=== PATIENT | female | born 1960 | race Caucasian/White ===

== ENCOUNTER 2024-04-30 17:46 | Emergency (ER) | payer OTHER, SELFPAY ==
[2024-04-30 17:49] VITALS: BP 156/99
--- NOTE | 2024-04-30 17:50 | ED.GENMED ---
ED Provider Triage
<Jagdish Duarte PA-C - Last Filed: 04/30/24 17:52>
-
Patient seen by provider in Triage?: Seen in Triage
63 yo female presents for evaluation of LLQ pain x 2 days. Sharp, colicky, radiates across the lower abd. No f/c/s/n/v/d. No prior surgeries. No imaging proven divertic in the past but has been treated empirically for this
Abdomen soft, mildly tender. NO peritoneal signs. Looks well.
Check labs, CT
History of Present Illness
<Jagdish Duarte PA-C - Last Filed: 04/30/24 17:52>
General
Chief Complaint: Abdominal Pain
Time Seen by Provider: 04/30/24 22:34
<Chapin Steinberg DO - Last Filed: 05/01/24 00:34>
History of Present Illness
History of Present Illness:
TIME OF INITIAL ENCOUNTER: 10:40 PM
HPI: Patient presents with lower abdominal pain. She describes the pain as sharp and colicky and has been ongoing for the past 2 days. She was empirically treated for diverticulitis in the past but did not have any imaging to confirm this.
EXAM:
GENERAL: Well appearing in no distress
HEENT: Moist oral mucosa
CARDIOVASCULAR: No murmurs, normal heart rate, regular rhythm, No chest wall tenderness
PULMONARY: No respiratory distress, breath sounds are clear and equal
ABDOMEN: Soft with no peritoneal signs, mild left-sided lower and upper abdominal tenderness
NEUROLOGIC: Excellent strength all extremities, no coordination deficits
PSYCHIATRIC: Appropriate mental status, normal insight and judgement
EXTREMITIES: Nontender, no edema, moves all extremities equally
SKIN: No rash, no lesions
NUMBER AND COMPLEXITY OF PROBLEMS ADDRESSED AT THE ENCOUNTER
� Chronic conditions affecting care: Asthma, hypothyroidism, diverticular disease
� Acute Exacerbation and/or Progression of Chronic Illness: This is an acute problem
� Differential Diagnosis includes: Diverticulitis, complication from diverticulitis such as abscess or perforation
AMOUNT AND/OR COMPLEXITY OF DATA TO BE REVIEWED AND ANALYZED
� I performed an independent evaluation of and my interpretation is:
EKG:
CT: CT imaging reviewed�moderate diverticulitis noted descending colon
X-rays:
Laboratory Studies: White count 15.2, chemistries unremarkable
Other:
� Review of other/old records: The patient was seen here with eye floaters in 2020
� Clinical information was obtained by an independent historian: I spoke to
� Prescriptions/Medications Considered but not given:
� Further testing considered but not performed:
RISK OF COMPLICATIONS AND/OR MORBIDITY OR MORTALITY OF PATIENT MANAGEMENT
� Social determinants of health affecting care: Lives at home
� Discussion with other providers:
� Escalation of care including admission/observation vs risk of discharge considered: Leukocytosis is noted, CT does show moderate diverticulitis however the patient's physical exam is relatively unremarkable. Will plan oral
antibiotics.
ANY OTHER UPDATES:
12:30 AM: I reassessed. The patient appears comfortable. CT imaging does confirm diverticulitis. She tells me this is her fourth bout but the first time this is confirmed by imaging. She is to follow-up with PMD and GI
Past History
<Jagdish Duarte PA-C - Last Filed: 04/30/24 17:52>
Past History
ED Past Medical History: Other (Osteoporosis mixed connective tissue)
Social History
Tobacco: Non-smoker
Alcohol: None
Drug: None
Personal:
Living: with family
Employment: Employed
Family History
Family History: Other (Noncontributory)
Phy Exam
<Chapin Steinberg DO - Last Filed: 05/01/24 00:34>
Physical Exam
Physical Exam:
See HPI
Course
<Jagdish Duarte PA-C - Last Filed: 04/30/24 17:52>
Orders/Labs/Results
Orders:
Orders
04/30/24 17:49
CT Abd/Pel (IV only)-DH only Urgent
Comment:
Reason For Exam: LLQ pain
04/30/24 17:57
Complete Blood Count/With Diff Urgent
Comprehensive Metabolic Panel Urgent
04/30/24 22:50
Urinalysis Reflex To Culture Urgent
Date Specimen was Collected: 04/30/24
Time Specimen was Collected: 22:47
Urine Microscopic Reflex Cult Urgent
05/01/24 00:25
Amoxicillin 875 mg/Clav 125 mg [Augmentin 875 mg/125 mg] 1 tablet PO NOW STA
Abnormal Lab Results
04/30/24 04/30/24
17:57 22:50
WBC 15.2 H 10^3/uL
(4.8-10.8)
Abs Immat Gran (auto) 0.1 H 10^3/uL
(0-0.05)
Absolute Neuts (auto) 11.1 H 10^3/uL
(1.4-6.5)
Absolute Monos (auto) 1.3 H 10^3/uL
(0.1-0.6)
Lymphocytes % 17.3 L %
(20.5-51.1)
Glucose 103 H mg/dl
(70-99)
Urine Ketones 2+ A
(Negative)
Ur Occult Blood Reflex 2+ A
(Negative)
Leukocyte Esterase Rfl Trace A
(Negative)
Urine Bacteria (Reflex) Few A
(Negative)
04/30/24 17:57
04/30/24 17:57
Vital Signs
Initial and Last Documented VS:
Initial Vital Signs
Temp Pulse Resp BP Pulse Ox
36.7 C 126 20 156/99 99
04/30/24 17:49 04/30/24 17:49 04/30/24 17:49 04/30/24 17:49 04/30/24 17:49
Last Documented Vital Signs
Temp Pulse Resp BP Pulse Ox
37.2 C 105 20 120/71 96
04/30/24 21:00 04/30/24 21:00 04/30/24 21:00 05/01/24 00:06 05/01/24 00:06
<Chapin Steinberg, - Last Filed: 05/01/24 00:34>
Orders/Labs/Results
Orders:
Orders
04/30/24 17:49
CT Abd/Pel (IV only)-DH only Urgent
Comment:
Reason For Exam: LLQ pain
04/30/24 17:57
Complete Blood Count/With Diff Urgent
Comprehensive Metabolic Panel Urgent
04/30/24 22:50
Urinalysis Reflex To Culture Urgent
Date Specimen was Collected: 04/30/24
Time Specimen was Collected: 22:47
Urine Microscopic Reflex Cult Urgent
05/01/24 00:25
Amoxicillin 875 mg/Clav 125 mg [Augmentin 875 mg/125 mg] 1 tablet PO NOW STA
Abnormal Lab Results
04/30/24 04/30/24
17:57 22:50
WBC 15.2 H 10^3/uL
(4.8-10.8)
Abs Immat Gran (auto) 0.1 H 10^3/uL
(0-0.05)
Absolute Neuts (auto) 11.1 H 10^3/uL
(1.4-6.5)
Absolute Monos (auto) 1.3 H 10^3/uL
(0.1-0.6)
Lymphocytes % 17.3 L %
(20.5-51.1)
Glucose 103 H mg/dl
(70-99)
Urine Ketones 2+ A
(Negative)
Ur Occult Blood Reflex 2+ A
(Negative)
Leukocyte Esterase Rfl Trace A
(Negative)
Urine Bacteria (Reflex) Few A
(Negative)
04/30/24 17:57
04/30/24 17:57
Vital Signs
Initial and Last Documented VS:
Initial Vital Signs
Temp Pulse Resp BP Pulse Ox
36.7 C 126 20 156/99 99
04/30/24 17:49 04/30/24 17:49 04/30/24 17:49 04/30/24 17:49 04/30/24 17:49
Last Documented Vital Signs
Temp Pulse Resp BP Pulse Ox
37.2 C 105 20 120/71 96
04/30/24 21:00 04/30/24 21:00 04/30/24 21:00 05/01/24 00:06 05/01/24 00:06
<Chapin Steinberg DO - Last Filed: 05/01/24 00:34>
*Critical Care Note
Total Time (30-74mins, 75-104mins- exclusive of procedures): Not Applicable
ED Attending Note
<Jagdish Duarte PA-C - Last Filed: 04/30/24 17:52>
-
Portions of this chart may have been created with voice recognition software.� Occasional wrong word or��sound alike� substitutions may have occurred due to the inherent limitations of voice recognition software.
Discharge Plan
Departure
Patient Disposition: Home (Routine Discharge)
Date of Disposition: 05/01/24
Time of Disposition: 00:31
Patient with high blood pressure during this ER visit?: Yes
Discharge Problem:
Diverticulitis
Instructions: Diverticulitis (DC)
Prescriptions:
New
amoxicillin-pot clavulanate 875-125 mg tablet
1 tab PO BID Qty: 14 0RF
No Action
levothyroxine 88 MCG tablet
88 mcg PO DAILY
hydroxychloroquine 200 MG tablet
200 mg PO BID
abaloparatide [Tymlos] 1.56 ML pen injector
1.56 ml SC HS
cholecalciferol (vitamin D3) 2,000 UNITS tablet
2,000 units PO DAILY
Referrals:
Bartolo Alvarenga MD [Family Provider] -
Activity Restrictions/Additional Instructions:
The CAT scan shows moderate diverticulitis involving the descending colon with associated small amount of adjacent fluid. There is no associated abscess. We recommend a follow-up colonoscopy with your doctors after symptoms have improved. CAT
scan also shows a 1.8 cm right adrenal nodule as well as gallstones. Return here if worse or other concerns. I sent a prescription for Augmentin to your pharmacy in [place].
Interventions
Interventions:
*Risk Screen - Suicide Last Done: 04/30/24 22:45
*General Assessment Last Done: 04/30/24 17:49
*Neglect/Abuse Screening Last Done: 04/30/24 22:45
ED- Fall Risk Assessment Last Done: 04/30/24 22:44
*ED COVID-19 Vaccine History Last Done: 04/30/24 22:45
*Nursing Disposition Last Done: 05/01/24 00:33
IX-Oblxll-Apxyzjhimb Assessment Last Done: 04/30/24 22:44
Discharge Date and Time
Print Language: [place] CITIZEN
[2024-04-30 18:07] LABS: % Basophils 0.3 % (0-2); % Eosinophils 0.6 % (0-6); % Immature Granulocytes 0.5 % (0-0.5); % Lymphocytes 17.3 % (20.5-51.1); % Monocytes 8.3 % (1.7-9.3); Absolute Basophils 0.1 10^3/uL (0-0.2); Absolute Eosinophils 0.1 10^3/uL (0-0.7); Absolute Immature Granulocytes 0.1 10^3/uL (0-0.05); Absolute Lymphocytes 2.6 10^3/uL (1.2-3.4); Absolute Monocytes 1.3 10^3/uL (0.1-0.6); Absolute Neutrophils 11.1 10^3/uL (1.4-6.5); Hematocrit 41.3 % (37.0-47.0); Hemoglobin 14.1 g/dL (12.0-16.0); Mean Corp Hgb Conc. 34.1 g/dL (33.0-37.0); Mean Corpuscular Hgb 30.1 pg (27.0-31.0); Mean Corpuscular Volume 88.2 fL (81.0-99.0); Mean Platelet Volume 9.7 fL (7.4-10.4); Nucleated Red Blood Cells % 0 %; Platelet Count 251 10^3/uL (130-400); Red Blood Cell Count 4.68 10^6/uL (4.20-5.40); Red Cell Dist. Width 13.2 % (11.5-14.5); White Blood Cell Count 15.2 10^3/uL (4.8-10.8)
[2024-04-30 18:23] LABS: ALT (SGPT) 26 U/L (0-35); AST (SGOT) 28 U/L (14-36); Albumin 4.6 g/dl (3.5-5.0); Alkaline Phosphatase 53 U/L (38-126); Blood Urea Nitrogen 12 mg/dl (7-17); Calcium 9.5 mg/dl (8.4-10.2); Carbon Dioxide 23 mmol/L (22-30); Chloride 102 mmol/L (98-107); Glucose 103 mg/dl (70-99); Potassium 4.3 mmol/L (3.5-5.1); Sodium 136 mmol/L (135-145); Total Bilirubin 1.3 mg/dl (0.2-1.3); eGFR > 60.00
[2024-04-30 21:00] VITALS: BP 149/85
[2024-04-30 22:45] VITALS: BMI 27.3
[2024-04-30 22:50] VITALS: BP 137/79
[2024-04-30 22:59] LABS: Urine Albumin Negative (Neg - Trace); Urine Bilirubin Negative (Negative); Urine Character Clear (Clear); Urine Color Yellow; Urine Glucose Negative (Negative); Urine Ketone 2+ (Negative); Urine Leukocyte Trace (Negative); Urine Nitrite Negative (Negative); Urine Occult Blood 2+ (Negative); Urine Urobilinogen Negative (Neg - 1+)
[2024-04-30 23:00] VITALS: BP 124/84
[2024-04-30 23:08] LABS: Urine Bacteria Few (Negative); Urine Red Blood Cell 0-2 /HPF (0-2); Urine White Cell 0-2 /HPF (0-5)
[2024-05-01 00:06] VITALS: BP 120/71
[2024-05-01] MEDS: AUGMENTIN 875 MG/125 MG 1 TABLET PO (00:36)
== END 2024-05-01 00:40 | disposition home or self-care (01) ==
LOC: EMR 17:46
PROVIDERS: Physician Assistant; EMERGENCY PHYSICIAN Emergency Medicine; FAMILY PHYSICIAN Internal Medicine
DX: K57.32 Diverticulitis of large intestine without perforation or abscess without bleeding (principal); J45.909 Unspecified asthma, uncomplicated; E03.9 Hypothyroidism, unspecified
CPT/HCPCS: 99284; 74177; 80053; 81003; 81015; 85025; Q9967

== ENCOUNTER 2025-04-15 12:10 | Emergency (ER) | payer BC, SELFPAY ==
[2025-04-15 12:18] VITALS: BP 178/84
[2025-04-15 13:02] LABS: Hematocrit 39.2 % (37.0-47.0); Hemoglobin 13.4 g/dL (12.0-16.0); Mean Corp Hgb Conc. 34.2 g/dL (33.0-37.0); Mean Corpuscular Volume 90.5 fL (81.0-99.0); Nucleated Red Blood Cells % 0 %; Platelet Count 219 10^3/uL (130-400); Red Cell Dist. Width 13.1 % (11.5-14.5)
[2025-04-15 13:22] LABS: ALT (SGPT) 16 U/L (0-35); AST (SGOT) 22 U/L (14-36); Albumin 4.5 g/dl (3.5-5.0); Alkaline Phosphatase 40 U/L (38-126); Blood Urea Nitrogen 9 mg/dl (7-17); Calcium 9.5 mg/dl (8.4-10.2); Carbon Dioxide 24 mmol/L (22-30); Chloride 106 mmol/L (98-107); Glucose 85 mg/dl (70-99); Lipase 141 U/L (23-300); Potassium 4.0 mmol/L (3.5-5.1); Sodium 137 mmol/L (135-145); Total Protein 7.0 g/dl (6.3-8.2); eGFR > 60.00
--- NOTE | 2025-04-15 13:34 | ED.GENMED ---
History of Present Illness
General
Chief Complaint: Abdominal Pain
Source: patient
Exam Limitations: none
Time Seen by Provider: 04/15/25 13:33
History of Present Illness
History of Present Illness:
64-year-old male with history of celiac, erosive gastritis, asthma, hypothyroid with known gallstones presents with intermittent epigastric pain that radiates around the abdomen in a bandlike fashion. This is also associated with sweats and chills
and nausea but no vomiting. No measurable fever. No change in bowel movements or urinary symptoms. She noted some chest tightness as well. She has a history of diverticulitis but this feels different. No other complaints at this time
Past History
Past History
ED Past Medical History: Other (Osteoporosis mixed connective tissue)
Social History
Tobacco: Non-smoker
Alcohol: None
Drug: None
Personal:
Living: with family
Employment: Employed
Family History
Family History: Other (Noncontributory)
Phy Exam
Physical Exam
Physical Exam:
General: Well-appearing female no acute distress
HEENT: Normal cephalic atraumatic
: Regular rate and rhythm lungs: Clear no wheeze
Abdomen soft tender to the epigastric and right upper quadrants no guarding negative Melton's no costovertebral angle tenderness no lower abdominal tenderness
Extremities: No cyanosis edema
Skin warm no rash
Course
Orders/Labs/Results
Orders:
Orders
04/15/25 12:21
Electrocardiogram (*1) Urgent
Reason for Study: Abdominal Pain
EKG- Treatment ONCE
04/15/25 12:38
Complete Blood Count/With Diff Urgent
Comprehensive Metabolic Panel Urgent
Lipase Urgent
04/15/25 13:46
CR Chest - 2 Views Urgent
Comment:
Reason For Exam: chest pain
US Abdomen Complete/Upper Urgent
Comment:
Reason For Exam: epigastric pain
04/15/25 15:00
Troponin I Urgent
04/15/25 15:01
COVID-19 Antigen Urgent
Source: Nasal Swab
Influenza A+B Rapid Molecular Urgent
QUINTIN Source: Nasal Swab
Specimen Description:
04/15/25 12:38
04/15/25 12:38
Vital Signs
Initial and Last Documented VS:
Initial Vital Signs
Temp Pulse Resp BP Pulse Ox
98.2 F 96 19 178/84 100
04/15/25 12:18 04/15/25 12:18 04/15/25 12:18 04/15/25 12:18 04/15/25 12:18
Last Documented Vital Signs
Temp Pulse Resp BP Pulse Ox
98.2 F 96 19 178/84 100
04/15/25 12:18 04/15/25 12:18 04/15/25 12:18 04/15/25 12:18 04/15/25 13:34
MDM/Problems Addressed
Differential Diagnosis Includes:
Epigastric pain. Consider gastritis versus biliary colic versus pancreatitis versus ACS. Will check EKG troponin. Lipase was ordered in triage which was negative. Order ultrasound of the abdomen. Chest x-ray COVID and flu pending as well
*Pulse Oximetry
SaO2: 100
Patient hypoxic: no
*Critical Care Note
Total Time (30-74mins, 75-104mins- exclusive of procedures): Not Applicable
Update Note
Update Note:
EKG shows normal sinus rhythm with incomplete right bundle branch block. There is a rate of 73. No ischemic changes ultrasound shows cholelithiasis with gallbladder wall thickening no pericholecystic fluid and negative Melton's sign
sonographically. Liver functions are normal. Patient reexamined pain significantly improved. Given the option to stay in the hospital for possible early cholecystitis however she wishes to go home. Reached out to surgery for close follow-up
ED Attending Note
-
Portions of this chart may have been created with voice recognition software.� Occasional wrong word or��sound alike� substitutions may have occurred due to the inherent limitations of voice recognition software.
Discharge Plan
Departure
Patient Disposition: Home (Routine Discharge)
Date of Disposition: 04/15/25
Time of Disposition: 16:11
Patient with high blood pressure during this ER visit?: No
Discharge Problem:
Biliary colic
Instructions: Gallstones (DC)
Prescriptions:
No Action
levothyroxine 88 MCG tablet
88 mcg PO DAILY
hydroxychloroquine 200 MG tablet
200 mg PO BID
abaloparatide [Tymlos] 1.56 ML pen injector
1.56 ml SC HS
cholecalciferol (vitamin D3) 2,000 UNITS tablet
2,000 units PO DAILY
amoxicillin-pot clavulanate 875-125 mg tablet
1 tab PO BID Qty: 14 0RF
Referrals:
Francisco Drummond MD [Active, Surgical]
Bartolo Alvarenga MD [Family Provider, Internal Medicine]
Activity Restrictions/Additional Instructions:
Continue eating bland diet and drink plenty fluids while eating. Return here as discussed for increasing pain fever vomiting or other concerning findings. Follow-up with general surgery as an outpatient otherwise
Interventions
Interventions:
*General Assessment Last Done: 04/15/25 12:20
*Neglect/Abuse Screening Last Done: 04/15/25 12:20
*ED COVID-19 Vaccine History Last Done: 04/15/25 12:20
*ED Influenza Vaccine History Last Done: 04/15/25 12:20
*Risk Screen - Suicide (C-SSRS) Last Done: 04/15/25 12:20
PE-Hudsju-Hwxjqgrvqd Assessment Last Done: 04/15/25 14:43
Discharge Date and Time
Print Language: PASHTO
--- NOTE | 2025-04-15 15:15 | EDRN ---
Report to Carmen, Rn
[2025-04-15 15:37] LABS: COVID-19 Antigen Negative (Negative)
[2025-04-15 15:48] LABS: Troponin I < 0.012 ng/ml
== END 2025-04-15 16:40 | disposition home or self-care (01) ==
LOC: EMR 12:10
PROVIDERS: Physician Assistant; EMERGENCY PHYSICIAN Emergency Medicine; FAMILY PHYSICIAN Internal Medicine
DX: K80.70 Calculus of gallbladder and bile duct without cholecystitis without obstruction (principal); J45.909 Unspecified asthma, uncomplicated; E03.9 Hypothyroidism, unspecified; K90.0 Celiac disease; M81.0 Age-related osteoporosis without current pathological fracture; Z87.19 Personal history of other diseases of the digestive system
CPT/HCPCS: 99284; 71046; 76700; 80053; 83690; 84484; 85025; 87502; 87811; 93005

== ENCOUNTER 2025-04-17 06:31 | Day surgery (SDC) | payer BC, SELFPAY ==
[2025-04-17] VITALS (10 sets, daily range): BP systolic 106–149; BP diastolic 58–96
[2025-04-17 07:21] LABS: Hematocrit 40.3 % (37.0-47.0); Hemoglobin 13.9 g/dL (12.0-16.0); Mean Corp Hgb Conc. 34.5 g/dL (33.0-37.0); Mean Corpuscular Volume 87.2 fL (81.0-99.0); Nucleated Red Blood Cells % 0 %; Platelet Count 220 10^3/uL (130-400); Red Cell Dist. Width 13.0 % (11.5-14.5)
[2025-04-17 07:53] LABS: ALT (SGPT) 16 U/L (0-35); AST (SGOT) 21 U/L (14-36); Albumin 4.5 g/dl (3.5-5.0); Alkaline Phosphatase 40 U/L (38-126); Blood Urea Nitrogen 9 mg/dl (7-17); Calcium 9.6 mg/dl (8.4-10.2); Carbon Dioxide 21 mmol/L (22-30); Chloride 106 mmol/L (98-107); Glucose 96 mg/dl (70-99); Lipase 100 U/L (23-300); Potassium 3.9 mmol/L (3.5-5.1); Sodium 136 mmol/L (135-145); Total Protein 6.9 g/dl (6.3-8.2); eGFR > 60.00
[2025-04-17 08:03] LABS: Urine Character Clear (Clear)
[2025-04-17 08:46] LABS: Urine Squamous Cell 0-2 /LPF (Few)
[2025-04-17 08:47] LABS: Urine White Cell 0-2 /HPF (0-5)
--- NOTE | 2025-04-17 09:55 | ED.GENMED ---
History of Present Illness
<Jagdish Duarte PA-C - Last Filed: 04/17/25 16:26>
General
Chief Complaint: Abdominal Pain
Time Seen by Provider: 04/17/25 09:28
History of Present Illness
History of Present Illness:
64-year-old female presents to the emergency department for evaluation of intractable right upper quadrant pain. Was seen here 2 days ago and diagnosed with cholelithiasis, there was gallbladder wall thickening with no pericholecystic fluid on
imaging at that time. Patient was offered admission to the hospital but declined. Since that time she has been attempting to maintain a low-fat diet however has been essentially unable to tolerate food due to severe pain. Has been n.p.o. for the
past 7 to 8 hours. Denies any diarrhea or fevers. Prior abdominal surgical history includes and multiple hernia repairs
Past History
<Jagdish Duarte PA-C - Last Filed: 04/17/25 16:26>
Past History
ED Past Medical History: Other (Osteoporosis mixed connective tissue)
Social History
Tobacco: Non-smoker
Alcohol: None
Drug: None
Personal:
Living: with family
Employment: Employed
Family History
Family History: Other (Noncontributory)
Review of Systems
<Jagdish Duarte PA-C - Last Filed: 04/17/25 16:26>
Review of Systems
Allergies reviewed?: Yes
All Other Systems: ROS reviewed and negative except as documented in HPI and ROS
Phy Exam
<MARIE Zayas Last Filed: 04/17/25 16:26>
Physical Exam
Physical Exam:
GEN: Well appearing, NAD, WDWN
HEENT: Oral mucosa moist, no scleral icterus
Cardiac: Regular rate
Lung: No respiratory distress, no tachypnea
Abdomen: Soft, mild right upper quadrant tenderness, negative Melton sign, no peritoneal signs
MSK: No gross deformity or injuries
Skin: Good color, no pallor or jaundice, no rashes
Neuro: AO x3, moves all extremities freely
Psych: Calm, cooperative
Course
<Jagdish Duarte PA-C - Last Filed: 04/17/25 16:26>
Orders/Labs/Results
Orders:
Orders
04/17/25 06:46
IV Insert/Care/Rem.- Treatment PRN
Straight cath- Treatment ONCE
04/17/25 07:09
Complete Blood Count/With Diff Urgent
Comprehensive Metabolic Panel Urgent
Lipase Urgent
04/17/25 07:10
Urinalysis Reflex To Culture Urgent
Date Specimen was Collected: 04/17/25
Time Specimen was Collected: 06:46
Urine Microscopic Reflex Cult Urgent
04/17/25 11:17
CefoTEtan [Cefotan] 2,000 mg IV PRE PROCEDURE ONE
04/17/25 11:24
Admit/Transfer Patient As Directed
Co-Sign Provider:
Level of Care: Post Proc/Surg Recovery
Assign to:: Medical/Surgical
Physician / Group: Pellini/General surgery
Diagnosis: Biliary colic
Reason for Overnight Stay: Standard of Care
PRN Pain Medication Management As Directed
May give lesser potent ordered pain med per pt: Yes
preference::
Protocol:: Medication orders for pain may be administered in a
manner that supports deferring to patient preference
when the pt is:
- Requesting an ordered lesser potent pain medication.
Least to most potent pain medications are defined
as: acetaminophen < NSAID < tramadol < opioids
(morphine, oxycodone, hydromorphone).
- Requesting a lesser dose of the same medication IF
ORDERED.
- Requesting a less intrusive route of administration
if both routes are prescribed by the provider (PO <
IV).
04/17/25 11:26
Code Status As Directed
Resuscitation Status: Full Code
04/17/25 12:00
Sterile Water [Sterile Water For Injection] 10 ml IV PRE PROCEDURE ONE
04/17/25 16:23
0.9% Sodium Chloride 1000 ml [Nss] 1,000 ml IV 120 mls/hr
Acetaminophen [Tylenol] 650 mg PO Q4HPRN PRN
HYDROmorphone [Dilaudid] 0.5 mg IV Q2HPRN PRN
Ketorolac [Toradol] 10 mg IV Q6HPRN PRN
Ondansetron Injectable [Zofran] 4 mg IV Q6HPRN PRN
Oxycodone [Roxicodone] 5 mg PO Q4HPRN PRN
04/17/25 16:23
Activity As Directed
Activity Level: Out of Bed-Early Mobility
Intake/ Output As Directed
Frequency: Per unit guidelines
Pneumatic Compression Sleeves As Directed
Type: Knee high
Vital Signs As Directed
Frequency: Per unit guidelines
Rx Incentive Spirometry [RESP] Routine
Frequency: q1h while awake
# of times per hour: 10
DX Deep Vein Thrombosis Video Routine
04/18/25 08:00
Levothyroxine [Synthroid] 88 mcg PO DAILY
Abnormal Lab Results
04/17/25 04/17/25
07:09 07:10
Carbon Dioxide 21 L mmol/L
(22-30)
Urine Ketones 3+ A
(Negative)
Ur Occult Blood Reflex 3+ A
(Negative)
Urine RBC 3-6 A /HPF
(0-2)
Urine Bacteria (Reflex) Few A
(Negative)
Urine Albumin (Reflex) 2+ A
(Neg - Trace)
04/17/25 07:09
04/17/25 07:09
Vital Signs
Initial and Last Documented VS:
Initial Vital Signs
Temp Pulse Resp BP Pulse Ox
97.9 F 83 20 149/96 99
04/17/25 06:39 04/17/25 06:39 04/17/25 06:39 04/17/25 06:39 04/17/25 06:39
Last Documented Vital Signs
Temp Pulse Resp BP Pulse Ox
97.9 F 83 20 147/82 99
04/17/25 06:39 04/17/25 06:39 04/17/25 06:39 04/17/25 14:00 04/17/25 09:55
<Jailene Rendon DO - Last Filed: 04/17/25 10:17>
Orders/Labs/Results
Orders:
Orders
04/17/25 06:46
IV Insert/Care/Rem.- Treatment PRN
Straight cath- Treatment ONCE
04/17/25 07:09
Complete Blood Count/With Diff Urgent
Comprehensive Metabolic Panel Urgent
Lipase Urgent
04/17/25 07:10
Urinalysis Reflex To Culture Urgent
Date Specimen was Collected: 04/17/25
Time Specimen was Collected: 06:46
Urine Microscopic Reflex Cult Urgent
04/17/25 11:17
CefoTEtan [Cefotan] 2,000 mg IV PRE PROCEDURE ONE
04/17/25 11:24
Admit/Transfer Patient As Directed
Co-Sign Provider:
Level of Care: Post Proc/Surg Recovery
Assign to:: Medical/Surgical
Physician / Group: Pellini/General surgery
Diagnosis: Biliary colic
Reason for Overnight Stay: Standard of Care
PRN Pain Medication Management As Directed
May give lesser potent ordered pain med per pt: Yes
preference::
Protocol:: Medication orders for pain may be administered in a
manner that supports deferring to patient preference
when the pt is:
- Requesting an ordered lesser potent pain medication.
Least to most potent pain medications are defined
as: acetaminophen < NSAID < tramadol < opioids
(morphine, oxycodone, hydromorphone).
- Requesting a lesser dose of the same medication IF
ORDERED.
- Requesting a less intrusive route of administration
if both routes are prescribed by the provider (PO <
IV).
04/17/25 11:26
Code Status As Directed
Resuscitation Status: Full Code
04/17/25 12:00
Sterile Water [Sterile Water For Injection] 10 ml IV PRE PROCEDURE ONE
04/17/25 16:23
0.9% Sodium Chloride 1000 ml [Nss] 1,000 ml IV 120 mls/hr
Acetaminophen [Tylenol] 650 mg PO Q4HPRN PRN
HYDROmorphone [Dilaudid] 0.5 mg IV Q2HPRN PRN
Ketorolac [Toradol] 10 mg IV Q6HPRN PRN
Ondansetron Injectable [Zofran] 4 mg IV Q6HPRN PRN
Oxycodone [Roxicodone] 5 mg PO Q4HPRN PRN
04/17/25 16:23
Activity As Directed
Activity Level: Out of Bed-Early Mobility
Intake/ Output As Directed
Frequency: Per unit guidelines
Pneumatic Compression Sleeves As Directed
Type: Knee high
Vital Signs As Directed
Frequency: Per unit guidelines
Rx Incentive Spirometry [RESP] Routine
Frequency: q1h while awake
# of times per hour: 10
DX Deep Vein Thrombosis Video Routine
04/18/25 08:00
Levothyroxine [Synthroid] 88 mcg PO DAILY
Abnormal Lab Results
04/17/25 04/17/25
07:09 07:10
Carbon Dioxide 21 L mmol/L
(22-30)
Urine Ketones 3+ A
(Negative)
Ur Occult Blood Reflex 3+ A
(Negative)
Urine RBC 3-6 A /HPF
(0-2)
Urine Bacteria (Reflex) Few A
(Negative)
Urine Albumin (Reflex) 2+ A
(Neg - Trace)
04/17/25 07:09
04/17/25 07:09
Vital Signs
Initial and Last Documented VS:
Initial Vital Signs
Temp Pulse Resp BP Pulse Ox
97.9 F 83 20 149/96 99
04/17/25 06:39 04/17/25 06:39 04/17/25 06:39 04/17/25 06:39 04/17/25 06:39
Last Documented Vital Signs
Temp Pulse Resp BP Pulse Ox
97.9 F 83 20 147/82 99
04/17/25 06:39 04/17/25 06:39 04/17/25 06:39 04/17/25 14:00 04/17/25 09:55
<Jagdish Duarte PA-C - Last Filed: 04/17/25 16:26>
MDM/Problems Addressed
MDM/Problems Addressed:
Due to intractable pain the patient will be admitted to the surgical service for lap gabino and further management
<Jagdish Duarte PA-C - Last Filed: 04/17/25 16:26>
*Pulse Oximetry
SaO2: 99
Oxygen Mode of Delivery: Room air
Patient hypoxic: no
*Critical Care Note
Total Time (30-74mins, 75-104mins- exclusive of procedures): Not Applicable
ED Attending Note
<Jagdish Duarte PA-C - Last Filed: 04/17/25 16:26>
-
Portions of this chart may have been created with voice recognition software.� Occasional wrong word or��sound alike� substitutions may have occurred due to the inherent limitations of voice recognition software.
<Jailene Rendon DO - Last Filed: 04/17/25 10:17>
ED Attending Note
Patient seen and examined by attending physician: Yes
I performed the substantive portion of visit, reviewed & personally made and approve the management plan that is documented in note by myself or STEWART.: Yes
I performed a history and physical exam of patient and discussed management with resident, I reviewed resident's note and agree with documented findings and plan of care.: Yes
ED Attending Note:
64-year-old female presenting to the emergency department with persistent right upper quadrant abdominal pain with nausea. Patient notes symptoms on and off for the past week. Was initially seen and evaluated on 04/15 for the symptoms. She had
ultrasound imaging on 04/15 which showed concern for acute cholecystitis. Labs at that time were normal and patient afebrile so patient opted to go home for possible outpatient follow-up. However notes that last night her symptoms worsened which
prompted her to come back to the hospital for reassessment. Notes difficulty tolerating p.o. secondary to her symptoms. Notes prior hernia surgeries in the past as well as tubal ligation.
Vital signs on arrival significant for mild hypertension. On exam, patient nontoxic, no acute distress. Focal tenderness to the right upper quadrant of the abdomen without rebound or guarding. Laboratory analysis repeated, no leukocytosis.
However given prior ultrasound imaging, persistent symptoms, will discuss with surgery for admission and possible operative management
Discharge Plan
Departure
Patient Disposition: Admit
Date of Disposition: 04/17/25
Time of Disposition: 10:17
Admit to: Med/Surg
Presentation/result/management discussed w/ accepting MD/DO: Gen Surg
Discharge Problem:
Biliary colic
Interventions
Interventions:
*General Assessment Last Done: 04/17/25 06:39
*Neglect/Abuse Screening Last Done: 04/17/25 06:39
*ED COVID-19 Vaccine History Last Done: 04/17/25 06:39
*ED Influenza Vaccine History Last Done: 04/17/25 06:39
*Risk Screen - Suicide (C-SSRS) Last Done: 04/17/25 06:39
*Nursing Disposition Last Done: 04/17/25 14:22
BJ-Drmutf-Fgosevmubm Assessment Last Done: 04/17/25 11:32
Discharge Date and Time
Discharge Date/Time: 04/17/25 14:22
--- NOTE | 2025-04-17 11:29 | HPS.HSE ---
Addendum entered and electronically signed by Kurtis Torres MD 04/17/25 15:09:
Patient seen and examined with surgical CLIPPING MARKER. Agree with documented admission HPI with additions/details noted here.
HPI: 64-year-old female who reports about a week history now of intermittent upper abdominal pain radiating to the back. The first episode was last which subsided over 12 hours. She was subsequently able to eat regularly but then
into Friday her symptoms returned prompting an emergency department evaluation. She was confirmed to have gallstones with unremarkable laboratory testing. Her symptoms improved and she was discharged. Patient was afraid to eat but tried crackers
and banana with immediate return of pain overnight prompting emergency department reevaluation. She continues with tenderness and discomfort in the epigastric region radiating to the back and right shoulder area.
Past abdominal surgical history is notable for lap right salpingectomy, with development of hernia, Pfannenstiel incisional hernia repair with mesh and abdominoplasty, inguinal hernia repair, supraumbilical hernia repair, lipo suction.
Medical history notable for hypothyroidism, osteoporosis, connective tissue disorder for which she is on hydroxychloroquine but tapering, and mild intermittent asthma rarely using lysing an inhaler
AFVSS
NAD AAO x 3
ABD: Soft, nondistended, tenderness to palpation of the epigastrium and right upper quadrant but negative Melton's. No palpable gallbladder mass. Surgical scars well-healed. No detectable hernias.
Laboratory testing today including CBC and comprehensive metabolic panel unremarkable.
Ultrasound imaging 04/15/2025 reviewed as well as radiologist report. 2.2 cm gallstone in the neck of the gallbladder with mild wall thickening. No biliary ductal dilation.
Assessment/plan: 64-year-old female presenting with probable acute calculous cholecystitis with resultant intractable abdominal pain and anorexia/nausea.
Reviewed with patient indications for cholecystectomy secondary to her persistent symptoms which she is in agreement to proceed with.
Laparoscopic cholecystectomy was reviewed in detail including operative technique utilizing diagrams and alternative management options. The potential benefits and risks of the procedure were reviewed in detail, including but not limited to
infectious or wound healing complications, bleeding, bile leak, injury to biliary tree, iatrogenic injury to surrounding viscera and post cholecystectomy syndrome. Reviewed the typical postoperative recovery.
Any of the patient's concerns or questions were fully addressed and informed consent was obtained.
Cefotetan 2 g IV will be administered on-call to the OR
Original Note:
Family Physician
-
Family Physician: Bartolo Alvarenga
Chief Complaint
-
Epigstric pain
History of Present Illness
Ms House is a 64 yo female with a h/o connective tissue disorder, hypothyroid, laparoscopy surgery for fallopian tube, , Pfannenstiel incisional hernia repair with mesh with abdominoplasty, right inguinal and supraumbilical hernia repairs who
presents with epigastric pain which has been recurrent over the past week. She notes the first episode was about a week ago radiating into her mid back and self limiting over about 12 hours. She was eating normally but again developed the same pain
3 days ago radiating down into the right side and into her back and persisted overnight causing her to present to the ED on 04/15 for evaluation. Labs were normal and pain resolved in the ED. US with gallstones and some wall thickening but negative
melton's sign at that time. She was discharged to home and was initially afraid to eat but yesterday did try to eat crackers and a banana with return in pain causing her to present through the ED once again for evaluation. There is mild tenderness
to the RUQ on exam. She notes mild nausea yesterday after eating but no vomiting. Last BM was 2 days ago. She denies fevers or chills.
Medical History
Past Medical History
Past Medical History: Reports Asthma (uses rescue inhaler infrequently), Hypothyroidism and Other (osteoporosis, connective tissue dz)
Past Surgical History: Reports , Gynocological (laparoscopic removal of right fallopian tube), Tonsilectomy and Other (Pfannenstiel incisional hernia repair with mesh with abdominoplasty, supraumbilical and right inguinal hernia repairs.
Liposuction to thigh. )
Social History
Tobacco: Non-smoker
Alcohol: None
Living: With Family
Family History
Family History: Not pertinent
Allergies / Home Medications
Allergies reflects when Allergies were last updated in [facility].
Home Medications with original date entered in [facility]
Allergy/Medication List:
Patient Allergies
Allergy/AdvReac Type Severity Reaction Status Date / Time
morphine Allergy Vomiting Verified 04/30/24 17:49
If medication reconciliation has not been performed, why?: Medication List N/A (await formal med rec. for dosing Takes Synthroid, Plaquenil, Prolia and albuterol)
Review of Systems
-
History Source: Patient
A 12 point ROS was completed and negative except as noted: Yes
Physical Exam
Vital Signs
Vital Signs
Temp Pulse Resp BP Pulse Ox
97.9 F 83 20 149/96 99
04/17/25 06:39 04/17/25 06:39 04/17/25 06:39 04/17/25 06:39 04/17/25 09:55
Physical Exam
General: Well Developed and Well Nourished
HEENT: NormoCephalic and Moist mucous membranes
Respiratory: Non Labored Respirations
GI: Soft, Non Distended and Tender (mild RUQ tenderness)
Skin: Warm and Dry
Neuro: Awake, Alert and AO x 3
Psych: Calm
Laboratory Results
-
04/17/25 07:09
04/17/25 07:09
Laboratory Results
Total Bilirubin 0.7 mg/dl (0.2-1.3) 04/17/25 07:09
AST 21 U/L (14-36) 04/17/25 07:09
ALT 16 U/L (0-35) 04/17/25 07:09
Alkaline Phosphatase 40 U/L (38-126) 04/17/25 07:09
Lipase 100 U/L (23-300) 04/17/25 07:09
Data Reviewed
-
Ultrasound: Image Personally Visualized and interpreted, Report Reviewed by me, Discussed with Physician and Discussed with Patient
Lab Data: Labs Reviewed by me, Discussed with Physician and Discussed with Patient
Old Records: Reviewed
Impression/Plan
-
IMPRESSION: 64 yo female with h/o presenting with biliary colic with intermittent postprandial epigastric pain for the last week now more persistent (2nd presentation). US from 04/15 with cholelithiasis and mild gallbladder wall thickening. No
leukocytosis or fevers. Afebrile. VSS. Mild RUQ tenderness on exam. Given persistent pain will plan operative intervention for laparoscopic cholecystectomy.
PLAN:
NPO for OR tentatively later today
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
IVF while NPO
Analgesics/antiemetics prn
SCDs for VTE ppx
--- NOTE | 2025-04-17 12:58 | CM ---
Chart reviewed and spoke with pt at ED bedside
OR for [facility] today
Lives with and son at [address] [facility]
Independent with all ADLs
no DME
PCP Bartolo Alvarenga
[facility] in [place]
no hx of VN nor SNF
DCP is to go home with no services
Family can provide transportation at [place]
Cm will continue to follow up for any dcp needs
--- NOTE | 2025-04-17 15:09 | W.SUR.PREOP ---
Pre-Operative Surgical Note
-
I have examined this patient prior to the performance of the scheduled procedure.
The patient's condition is unchanged from the time of the current History and
Physical and the patient is able to undergo the scheduled procedure.
--- NOTE | 2025-04-17 16:50 | W.IMMPOSTOP ---
Addendum entered and electronically signed by Kurtis Torres MD 04/17/25 17:07:
#[id number]
Original Note:
Surgical Immed Post Op Note
-
Primary Surgeon: Kurtis Torres MD
Assisting Surgeon: Caryl Florian NP
Pre-op Diagnosis: Acute calculous cholecystitis
Post-op Diagnosis: Acute calculous cholecystitis
Procedure Performed: Laparoscopic cholecystectomy
Anesthesia Type: GETA +0.25% Marcaine with epi
Specimen / Cultures: Gallbladder/none
Estimated Blood Loss: 10 mL
Complications: None immediate
Operative Findings: Tensely distended gallbladder with large stone impacted in the neck. Cystic duct identified through critical view of safety and controlled with clips. Cystic artery and branch controlled with clips. Gallbladder removed intact
and extracted at epigastric trocar site. No adhesions from prior abdominal surgical history impacting operation. No additional incidental findings.
The assistance of Caryl Florian NP was required due to the complexity of the procedure. During the procedure Caryl Florian assisted with managing the laparoscope for visualization, gallbladder retraction for adequate exposure during the dissection and
closure of the incision sites. I was present for the entirety of the operative procedure through closure
[2025-04-17] MEDS: SUBLIMAZE 25 MCG IV (17:15)
[2025-04-17] MEDS: NSS 1000 IV (17:47)
--- NOTE | 2025-04-17 18:32 | PTCARENOTE ---
Pt arrived to [facility] s/p lap gabino. 5 lap sites INTERLOCKING AND SIGNAL MECHANIC with glue assessed. 97% on RA. Knee high scds on pt. Pt DTV. Admission questions answered. Bed locked and in lowest position. Call harrington within reach. Care ongoing.
[2025-04-18] MEDS: NSS 1000 IV (02:29)
[2025-04-18 03:22] VITALS: BP 114/72
[2025-04-18] MEDS: SYNTHROID 88 MCG PO (06:06)
[2025-04-18] MEDS: TYLENOL 650 MG PO (06:13)
[2025-04-18 06:18] VITALS: BMI 27.9
[2025-04-18 07:15] VITALS: BP 128/71
--- NOTE | 2025-04-18 07:20 | W.PN.GS2 ---
Today's Communication / Plan
-
`
Assessment / Plan
-
Assessment: 64-year-old female POD #1 status post lap gabino for acute calculous cholecystitis
AFVSS
Plan: Doing well postop
Stable for discharge
Patient states feels as though no need for narcotic prescription
Subjective Data
-
Date of Service: April 18, 2025
Patient seen and examined. States she is doing well postop.
Minimal postop incisional discomfort.
Ambulating
Voiding
Pain controlled
Objective Data
-
Intake and Output
04/17/25 04/18/25 04/19/25
06:59 06:59 06:59
Intake Total 1400 / 1400
Output Total 400 / 400
Balance 1000 / 1000
Intake:
Oral fluids 720 / 720
IV fluids (Total) 680 / 680
Normosol 200 / 200
Output:
Urine, Voided 400 / 400
Other:
Number of approximated MODERATE 1
amounts of urine
Vital Signs
Temp Pulse Resp BP Pulse Ox
98.4 F 87 18 114/72 100
04/18/25 03:22 04/18/25 03:22 04/18/25 03:22 04/18/25 03:22 04/18/25 03:22
Lab Results
04/17/25 07:09
04/17/25 07:09
Calcium 9.6 mg/dl (8.4-10.2) 04/17/25 07:09
Total Bilirubin 0.7 mg/dl (0.2-1.3) 04/17/25 07:09
AST 21 U/L (14-36) 04/17/25 07:09
ALT 16 U/L (0-35) 04/17/25 07:09
Alkaline Phosphatase 40 U/L (38-126) 04/17/25 07:09
Total Protein 6.9 g/dl (6.3-8.2) 04/17/25 07:09
Albumin 4.5 g/dl (3.5-5.0) 04/17/25 07:09
Physical Exam
-
NAD AAO x 3
--- NOTE | 2025-04-18 07:22 | W.DS.TRANS ---
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
-
Discharge Instructions:
Discharge Diagnosis/Procedures Acute calculous cholecystitis. Laparoscopic
cholecystectomy
Diet As tolerated,Low Fat
Additional Diets Smaller meals initially after surgery as
abdominal bloating and distention may be common
for the first few days
Activity No strenuous activity
Driving Restrictions No driving for 24 hours
Bathing Restrictions OK to Shower
Wound Care Glue at surgical sites typically peels off in 2
to 3 weeks
Instructions:
Stand-Alone Forms:
Changes to Home Medications: No
Discharge Medications:
DC Medications w/original date entered in [employer]
abaloparatide (Tymlos) 1.56 ml SC HS 11/30/20
cholecalciferol (vitamin D3) 50 mcg (2,000 unit) tablet 2,000 units PO DAILY 11/30/20
hydroxychloroquine 200 mg tablet 200 mg PO BID 11/30/20
levothyroxine 88 mcg tablet 88 mcg PO DAILY 11/30/20
acetaminophen 500 mg tablet (Tylenol Extra Strength) 1,000 mg (2 x 500 mg) PO Q6HPRN PRN mild pain #1 tab 04/17/25
ibuprofen 200 mg tablet 400 mg (2 x 200 mg) PO Q6HPRN PRN moderate pain #1 tab 04/17/25
polyethylene glycol 3350 17 gram/dose oral powder (Miralax) 4 g PO DAILY PRN Constipation #119 grams 04/17/25
Home Medication Changes
Pending Results: No
--- NOTE | 2025-04-18 08:35 | CM ---
CM reviewed chart- pt discharged prior to CM meeting with her
Per chart review no dc needs noted
== END 2025-04-17 14:22 | disposition still patient (30) ==
LOC: SDS 06:31
PROVIDERS: Emergency Medicine; ATTENDING PHYSICIAN Student in an Organized Health Care Education/Training Program; FAMILY PHYSICIAN Internal Medicine
DX: K80.12 Calculus of gallbladder with acute and chronic cholecystitis without obstruction (principal)
CPT/HCPCS: 47562; 80053; 81003; 81015; 83690; 85025; 88304